=== PATIENT | male | born 1970 | race Caucasian/White ===

== ENCOUNTER 2018-03-26 19:01 | Emergency (ER) | payer BC ==
[~2018-03-26] VITALS: Ht 177.8 cm; Wt 83.9 kg
[2018-03-26] MEDS ORDERED: CEPHALEXIN500 M1 PO (20:28)
== END 2018-03-26 20:29 | disposition home or self-care (01) ==
LOC: ED 19:01
DX: S91.331A Puncture wound without foreign body, right foot, initial encounter (principal); Z23 Encounter for immunization; Z91.040 Latex allergy status; W22.8XXA Striking against or struck by other objects, initial encounter; Y93.89 Activity, other specified; Y92.89 Other specified places as the place of occurrence of the external cause; Y99.8 Other external cause status